=== PATIENT | male | born 1985 ===

== ENCOUNTER 2017-09-11 09:41 | Day surgery (SDC) | payer BC ==
[2017-09-08 12:30] VITALS: BMI 34.4
[2017-09-11] MEDS ORDERED: Bupivacaine 0.25% 20 ML INJ IJ ONE (12:48)
[2017-09-11] MEDS ORDERED: ceFAZolin IV 2 gm in Dextrose 2 GM/50 ML BAG IVPB ONE (12:49)
[2017-09-11] MEDS ORDERED: Lidocaine/Epinephrine 1% 1:100000 10 ML IJ ONE (12:49)
[2017-09-11] MEDS ORDERED: Midazolam 2 MG/2 ML VIAL ONE (13:24)
[2017-09-11] MEDS ORDERED: Propofol 10 mg/ml Inj (20 ML) ONE (13:24)
--- NOTE | 2017-09-11 13:59 | PCM.SURG1 ---
Surgeon's Initial Post Op Note - Surgeon's Notes Surgeon: Dr. Rodriguez Furniture Removalist: Manfred Tong PGY1 Type of Anesthesia: IV Sedation, Local Pre-Operative Diagnosis: excision of back lesion Operative Findings: see operative report Post-Operative Diagnosis: same Operation Performed: excision of lesion on back Specimen/Specimens Removed: soft tissue mass Estimated Blood Loss: EBL {In ML}: 10 Blood Products Given: N/A Drains Used: No Drains Post-Op Condition: Good Date of Surgery/Procedure: 09/11/17 Time of Surgery/Procedure: 13:59
[2017-09-11 14:43] VITALS: O2SAT 100
[2017-09-11] MEDS ORDERED: Oxycodone/Acetaminophen 5/325 mg Tab PO PRN (15:00)
[2017-09-11 15:23] VITALS: RESP 16
[2017-09-11 15:42] VITALS: TEMP 97.5
[2017-09-11 16:24] VITALS: BP 97/59; PULSE 59
--- NOTE | 2017-09-12 23:34 | OP ---
PROCEDURE DATE: 09/11/2017 PREOPERATIVE DIAGNOSIS: Mid back lesion, approximately 3 x 2 cm size. POSTOPERATIVE DIAGNOSIS: Mid back lesion, approximately 3 x 2 cm size. PROCEDURE: 1. Excision of mid back lesion, 3 x 2 cm size. 2. Layer closure of the wound, 3 x 2 x 3 cm size. TYPE OF ANESTHESIA: Local anesthesia after sedation. ESTIMATED BLOOD LOSS: Around 10 mL. DRAINS: None. PATHOLOGY: The mid back skin lesion was sent off the table for the pathology including the full thickness of skin and subcutaneous tissue. INTRAOPERATIVE FINDINGS: The patient had approximately 3 x 2 cm large skin lesion in the mid back that was broad-based and extremely thickened and seem like it was deep up to the subcutaneous tissue. DESCRIPTION OF PROCEDURE: On intraoperative steps, this 31-year-old male was diagnosed with a large skin lesion of the back, and the patient was consented for excision of the back skin lesion, brought to the OR, placed supine on the operating table. After induction of the anesthesia, the back was prepped and draped in the usual sterile fashion. The local anesthesia was injected after sedation and elliptical 3 x 2 cm incision was made. After incising the skin, subcutaneous tissue, the dissection was carried down deep up through the fascia, and the skin lesion was completely excised with full thickness of the subcutaneous tissue, and the wound was irrigated. Hemostasis was achieved. The wound was closed in multiple layers, the deep subcu with 2-0 and 3-0 Vicryl, skin with 4-0 Monocryl, and another layer of the skin with 4-0 nylon double suture and dry sterile dressing was applied. The patient tolerated the procedure well. Count of instruments and gauze was correct. There was no apparent complication. The patient was reversed from sedation and sent to the postanesthesia care unit in stable condition. Nasim Rodriguez MD
== END 2017-09-11 16:13 | disposition home or self-care (01) ==
LOC: C.SDS 09:41
PROVIDERS: ATTEND Surgery Surgical Critical Care
DX: L98.9 Disorder of the skin and subcutaneous tissue, unspecified (principal)
CPT/HCPCS: 11403; 12032; 88305; J0690; J2250; J2704; J3010